=== PATIENT | male | born 1995 ===

== ENCOUNTER 2018-01-11 14:50 | Emergency (ER) | payer OTHER ==
--- NOTE | 2018-01-11 15:52 | ED ---
Lower Extremity - HPI Summary HPI Summary: Pt here w/ falling and twisting Lt ankle earlier today while intoxicated - reports he has not had any alcohol the past 3 hours however he may still be feeling some of the effects to a mild degree. Reports he was wearing a long garment and he tripped over his clothing. Denies any other injury as a result of this fall. Admits he was able to get back up and walk for a few miles without pain or discomfort. It wasn't until he sat down to rest that he notices ankle hurt. Since then, has pain with weightbearing. Denies numbness tingling weakness swelling or deformity. No previous injury to this ankle. Has not tried anything such as ice or ibuprofen prior to arrival. - History of Current Complaint Chief Complaint: EDExtremityLower Stated Complaint: LT ANKLE PAIN Time Seen by Provider: 01/11/18 15:12 Hx Obtained From: Patient Pain Intensity: 8 - Allergies/Home Medications Allergies/Adverse Reactions: Allergies Allergy/AdvReac Type Severity Reaction Status Date / Time No Known Allergies Allergy Verified 01/11/18 16:02 PMH/Surg Hx/FS Hx/Imm Hx Previously Healthy: Yes Endocrine/Hematology History: Denies: Hx Anticoagulant Therapy, Hx Blood Disorders Infectious Disease History: No Infectious Disease History: Denies: Traveled Outside the [place] in Last 30 Days - Social History Occupation: Student Lives: Dormitory/Roommates Alcohol Use: Weekly Hx Substance Use: No Substance Use Type: Reports: None Hx Tobacco Use: No Smoking Status (MU): Never Smoked Tobacco Review of Systems Constitutional: Negative Positive: no symptoms reported Positive: Arthralgia. Negative: Decreased ROM, Edema Skin: Negative Neurological: Negative Psychological: Normal All Other Systems Reviewed And Are Negative: Yes Physical Exam Triage Information Reviewed: Yes Vital Signs On Initial Exam: Initial Vitals Temp Pulse Resp BP Pulse Ox 98.6 F 115 18 136/86 98 01/11/18 15:05 01/11/18 15:05 01/11/18 15:05 01/11/18 15:05 01/11/18 15:05 Vital Signs Reviewed: Yes Appearance: Positive: Well-Appearing, No Pain Distress, Well-Nourished Skin: Positive: Warm, Skin Color Reflects Adequate Perfusion, Dry - No erythema , no ecchymosis about affected ankle Head/Face: Positive: Normal Head/Face Inspection Eyes: Positive: EOMI ENT: Positive: Hearing grossly normal Respiratory/Lung Sounds: Positive: Breath Sounds Present Cardiovascular: Positive: Pulses are Symmetrical in both Upper and Lower Extremities Musculoskeletal: Positive: Normal, Strength/ROM Intact. Negative: Pain @ Neurological: Positive: Normal, Sensory/Motor Intact, Alert, Oriented to Person Place, Time, CN Intact II-III Psychiatric: Positive: Normal Diagnostics - Vital Signs Vital Signs Temp Pulse Resp BP Pulse Ox 01/11/18 15:05 98.6 F 115 18 136/86 98 - Laboratory Lab Statement: Any lab studies that have been ordered have been reviewed, and results considered in the medical decision making process. Lower Extremity Course/Dx - Course Course Of Treatment: XR report - no acute findings - Diagnoses Provider Diagnoses: Left ankle sprain Discharge - Sign-Out/Discharge Documenting (check all that apply): Discharge - Discharge Plan Condition: Stable Disposition: HOME Patient Education Materials: Ankle Sprain (ED), Crutch Instructions (ED) Forms: *Physical Education Release Referrals: [facility] - Norman BUTT [Medical Doctor] - Additional Instructions: REST, ICE, ELEVATE AND ALFREDO wrap to prevent swelling. You may use crutches to avoid pain from weight bearing. You may take ibuprofen with food alternating with acetaminophen as needed for pain/swelling. Call [facility] to schedule follow-up in next 1-2 weeks. *If you develop numbness, tingling, weakness, swelling or skin discoloration, loosen ALFREDO wrap and elevate arm for 20 minutes. If symptoms persist, return to ED - Billing Disposition and Condition Condition: STABLE Disposition: HOME
--- NOTE | 2018-01-11 15:55 | RAD ---
Indication: LEFT ankle sprain. Pain with weightbearing. Comparison: No relevant prior exams available on the [facility] for comparison. Technique: AP, mortise, and lateral views LEFT ankle. REPORT AND IMPRESSION: Negative for fracture or malalignment. Mild soft tissue swelling over the lateral malleolus. No significant joint effusion evident.
== END 2018-01-11 16:32 | disposition home or self-care (01) ==
LOC: ED 14:50
DX: S93.402A Sprain of unspecified ligament of left ankle, initial encounter (principal); W01.0XXA Fall on same level from slipping, tripping and stumbling without subsequent striking against object, initial encounter; Y92.9 Unspecified place or not applicable
CPT/HCPCS: 99282